=== PATIENT | male | born 2000 | race African-American/Black ===

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

== ENCOUNTER 2020-02-16 12:24 | Emergency (ER) | payer SELFPAY ==
--- NOTE | 2020-02-16 13:39 | RAD ---
RIGHT TOES THREE VIEWS: 02/16/20 HISTORY: Injury and pain in the right great toe. FINDINGS/IMPRESSION: no acute fracture or dislocation identified. POS: [facility]
[2020-02-16] MEDS ORDERED: Lidocaine 1% (PF) 30 ML VIAL ONE (13:41)
[2020-02-16] MEDS ORDERED: Boostrix 0.5 ML (Tdap) VIAL ONE (14:42)
[2020-02-16] MEDS ORDERED: Bacitracin 1 PK ONE (14:52)
== END 2020-02-16 14:58 | disposition home or self-care (01) ==
LOC: ERS 12:24
DX: S99.921A Unspecified injury of right foot, initial encounter (principal); Z23 Encounter for immunization; W22.8XXA Striking against or struck by other objects, initial encounter
CPT/HCPCS: 90471; 90715; J2001

== ENCOUNTER 2021-02-23 11:58 | Emergency (ER) | payer SELFPAY | END 2021-02-23 14:40 | disposition home or self-care (01) | LOC: ERS 11:58 | DX: K04.7 Periapical abscess without sinus (principal) | CPT/HCPCS: 99283 ==

== ENCOUNTER 2022-09-28 16:14 | Emergency (ER) | payer SELFPAY ==
[2022-09-28] MEDS ORDERED: fentaNYL 50 mcg/mL 1 mL Vial ONE (16:18)
[2022-09-28] MEDS ORDERED: Boostrix 0.5 ML (Tdap) VIAL (>/=7 yrs of age) ONE (16:18)
[2022-09-28] MEDS ORDERED: CEFAZOLIN 2 GM VIAL ONE (16:18)
[2022-09-28] MEDS ORDERED: Bacitracin 1 PK ONE (16:36)
[2022-09-28] MEDS ORDERED: Ketorolac Tromethamine 30 MG/ML VIAL ONE (17:25)
== END 2022-09-28 18:05 | disposition home or self-care (01) ==
LOC: ERS 16:14 → EEVIPCON 16:14 → ERS 18:05
DX: S81.802A Unspecified open wound, left lower leg, initial encounter (principal); W34.00XA Accidental discharge from unspecified firearms or gun, initial encounter; Z23 Encounter for immunization
CPT/HCPCS: 90471; 90715; 96365; 96366; 96375; J1885; J3010

== ENCOUNTER 2023-03-09 14:45 | Emergency (ER) | payer SELFPAY ==
[2023-03-09] MEDS ORDERED: Dexamethasone 4 MG TAB ONE (16:17)
[2023-03-09] MEDS ORDERED: Ibuprofen 800 MG TAB ONE (16:17)
[2023-03-09 16:45] LABS: SARS-CoV-2 NAA Rapid Test Not Detected (NotDetected)
== END 2023-03-09 16:22 | disposition home or self-care (01) ==
LOC: ERS 14:45
DX: B34.9 Viral infection, unspecified (principal); H60.93 Unspecified otitis externa, bilateral; F17.210 Nicotine dependence, cigarettes, uncomplicated
CPT/HCPCS: 99284; J8540

== ENCOUNTER 2023-08-06 14:31 | Emergency (ER) | payer SELFPAY | END 2023-08-06 16:36 | disposition home or self-care (01) | LOC: ERS 14:31 | DX: S46.911A Strain of unspecified muscle, fascia and tendon at shoulder and upper arm level, right arm, initial encounter (principal); F17.290 Nicotine dependence, other tobacco product, uncomplicated; X50.1XXA Overexertion from prolonged static or awkward postures, initial encounter; Y93.89 Activity, other specified | CPT/HCPCS: 99282 ==

== ENCOUNTER 2023-11-22 22:56 | Emergency (ER) | payer BC, OTHER | END 2023-11-22 23:48 | disposition home or self-care (01) | LOC: ERS 22:56 | DX: M25.512 Pain in left shoulder (principal); F17.290 Nicotine dependence, other tobacco product, uncomplicated | CPT/HCPCS: 99283 ==